=== PATIENT | male | born 1995 | race Caucasian/White ===

== ENCOUNTER 2023-10-31 07:10 | Day surgery (SDC) | payer OTHER ==
[~2023-10-31] VITALS: Ht 198.1 cm; Wt 76.5 kg
[~2023-10-31 07:10] MED LIST: BIKTARVY 50-201 EAC1 PO; DESCOVY 200-251 EACH PO; FAMO20 PO; IBUP400 PO; METPHE27ER PO; MIRT30 PO; OMEP20ER PO; PRESISTA PO; PREZCOBIX 8001 EAC1 PO; RALT400 PO; RITO100 PO; [UNRECOGNIZED DRUG - OTHER] PO
[2023-10-31 07:58] VITALS: BP 115/79
--- NOTE | 2023-10-31 08:02 | NUR ---
Ambulatory in Day Surgery. History, Chart, Medications and Allergies reviewed before start of procedure. Lungs clear T/O to Auscultation. Patient confirms NPO status and agrees with scheduled surgery. Pre-Op teaching done. Pt verbalizes understanding. Patient States Post-Procedure ride home has been arranged.
--- NOTE | 2023-10-31 09:50 | NUR ---
10/31/23 0950 Jessica Diaz History, Chart, Medications and Allergies reviewed before start of procedure.MONITOR INTACT WITH CONTINUOUS PULSE OXIMETRY, CONTINUOUS END TITAL CO2, AND INTERMITTENT BLOOD PRESSURE.3-LEAD EKG REVIEWED WITH PHYSICIAN PRIOR TO START OF PROCEDURE.O2 VIA N/C INTACT THROUGHOUT SEDATION/PROCEDURE.4% LIDO GIVEN BY DR. SWARTZ PRIOR TO PROCEDURE. Bite Block Placed. DR. SWARTZ PROVIDING ANESHTESIA.
[2023-10-31 10:12] VITALS: BP 116/76
--- NOTE | 2023-10-31 10:14 | NUR ---
REPORT RECEIVED FROM ALAINA DE LEON RN. VSS. PT STILL SLEEPY BUT REPONDS TO VERBAL STIMULATION AND CAN FOLLOW COMMANDS. PT MOM AT BEDSIDE.
[2023-10-31 10:17] VITALS: BP 114/79
--- NOTE | 2023-10-31 10:21 | NUR ---
PT MORE AWAKE, SITTING UP AND TOLERATING PO FLUIDS. VSS. PT DENIES PAIN, NAUSEA, OR OTHER DISCOMFORTS.
[2023-10-31 10:29] VITALS: BP 127/78
== END 2023-10-31 10:47 | disposition home or self-care (01) ==
LOC: ORSCMMR 07:10 → ORD 08:45 → ORSCMMR 08:45
PROVIDERS: Internal Medicine Gastroenterology
PROC: 0DB68ZX Excision of Stomach, Via Natural or Artificial Opening Endoscopic, Diagnostic (ICD-10-PCS; principal; 2023-10-31 08:45)
PROC: 0DB28ZX Excision of Middle Esophagus, Via Natural or Artificial Opening Endoscopic, Diagnostic (ICD-10-PCS; principal; 2023-10-31 08:45)
PROC: 0DB98ZX Excision of Duodenum, Via Natural or Artificial Opening Endoscopic, Diagnostic (ICD-10-PCS; principal; 2023-10-31 08:45)
DX: K21.9 Gastro-esophageal reflux disease without esophagitis (principal); R10.32 Left lower quadrant pain; K29.70 Gastritis, unspecified, without bleeding; I71.40 Abdominal aortic aneurysm, without rupture, unspecified; K44.9 Diaphragmatic hernia without obstruction or gangrene; B20 Human immunodeficiency virus [HIV] disease; F32.A Depression, unspecified; F41.9 Anxiety disorder, unspecified; Z79.899 Other long term (current) drug therapy
CPT/HCPCS: 88305; 88342; J2001; J2704; J7120

== ENCOUNTER 2023-12-27 18:44 | Emergency (ER) | payer OTHER ==
[~2023-12-27] VITALS: Ht 198.1 cm; Wt 73.0 kg
[2023-12-27 20:04] LABS: Source, Urine Clean Catch
[2023-12-27 20:10] LABS: Appearance, Urine Clear (Clear); Bilirubin, Urine Neg (Neg); Blood, Urine Neg (Neg); Glucose Qualitative, Urine Neg (Neg); Ketones, Urine 1+ (Neg); Leukocyte Esterase, Urine Neg (Neg); Nitrite, Urine Neg (Neg); Protein, Urine Neg (Neg); Urobilinogen, Urine NORM (Normal)
[2023-12-27 20:15] LABS: Color, Urine Pale Yellow (P-Yellow)
[2023-12-27 20:15] LABS: BASOPHILS ABSOLUTE AUTO 0.06 K/mm3 (0.00-0.23); BASOPHILS PERCENT AUTO 0 % (0-2); EOSINOPHILS ABSOLUTE AUTO 0.04 K/mm3 (0.00-0.68); EOSINOPHILS PERCENT AUTO 0 % (0-6); Hemoglobin 17.9 g/dL (13.5-17.5); IMMATURE GRAN ABSOLUTE AUTO 0.03 K/mm3 (0.00-0.10); IMMATURE GRAN PERCENT AUTO 0 % (0-1); LYMPHOCYTES ABSOLUTE AUTO 2.52 K/mm3 (0.84-5.20); LYMPHOCYTES PERCENT AUTO 18 % (21-46); MONOCYTES ABSOLUTE AUTO 0.74 K/mm3 (0.16-1.47); MONOCYTES PERCENT AUTO 5 % (4-13); Mean Corpuscular HGB 30.1 pg (26.0-34.0); Mean Corpuscular HGB Conc 34.4 g/dL (31.5-36.5); Mean Corpuscular Volume 87 fL (80-100); NEUTROPHILS PERCENT AUTO 76 % (41-73); Platelet Count 380 K/mm3 (150-400); RDW Coefficient Variation 12.5 % (11.7-14.2); RDW Standard Deviation 40.2 fL (35.1-46.3); Red Blood Cell Count 5.95 M/mm3 (4.30-5.90); White Blood Cell Count 14.29 K/mm3 (4.00-11.30)
[2023-12-27 20:44] LABS: Albumin, Blood 4.5 g/dL (3.4-5.0); Albumin/Globulin Ratio 1.1 (0.8-1.8); Bilirubin, Total 0.8 mg/dL (0.1-1.0); Bun/Creatinine Ratio 19.3 (12.0-20.0); Calcium, Blood 9.7 mg/dL (8.5-10.1); Creatinine, Blood 0.93 mg/dL (0.60-1.20); Potassium, Blood 3.7 mmol/L (3.5-5.5); Total Protein, Blood 8.5 g/dL (6.4-8.2)
[2023-12-27 23:08] VITALS: BP 126/82
[2023-12-27] MEDS ORDERED: RX Prepack 2 Tabs Ondansetron ODT 4MG UD ONE (23:15)
[2023-12-27] MEDS ORDERED: ONDA4 PO (23:17)
== END 2023-12-27 23:18 | disposition home or self-care (01) ==
LOC: ER 18:44
PROVIDERS: Student in an Organized Health Care Education/Training Program
DX: R10.30 Lower abdominal pain, unspecified (principal); Z79.899 Other long term (current) drug therapy; F17.200 Nicotine dependence, unspecified, uncomplicated
CPT/HCPCS: 74177; 80053; 81003; 83690; 85025; 99284-25; A9270; Q9967

== ENCOUNTER → 2024-05-01 | Outpatient (CLI) | payer OTHER ==
[~2024-05-01] MED LIST changes: +ONDA4 PO
== END ==
LOC: LAB 17:18 → LAB SHORT 17:18
DX: H92.02 Otalgia, left ear (principal)
CPT/HCPCS: 87070; 87077; 87186; 87205

== ENCOUNTER → 2024-11-12 | Outpatient (CLI) | payer OTHER | LOC: LAB SHORT 17:27 → LAB 17:27 | DX: R30.0 Dysuria (principal) | CPT/HCPCS: 87086 ==

== ENCOUNTER 2025-10-27 09:23 | Day surgery (SDC) | payer OTHER ==
[~2025-10-27] VITALS: Ht 198.1 cm; Wt 85.5 kg
[2025-10-27] MEDS ORDERED: METO50ER PO (10:13)
[2025-10-27] MEDS ORDERED: SERT25 PO (10:16)
[2025-10-27] MEDS ORDERED: Metoclopramide HCl 5MG / ML 2ML Vial ONE (10:42)
[2025-10-27] MEDS ORDERED: Ondansetron HCl 2 MG / ML 2ML Vial ONE (10:42)
[2025-10-27] MEDS ORDERED: Rocuronium Bromide 10 MG/ML 5ML Injection IV ONE ×3 (10:42→12:38)
--- NOTE | 2025-10-27 10:46 | NUR ---
10/27/25 1046 ISAURO PARR PT DENIES/QUESTIONS NEEDS AT THIS TIME. RAILS UP, BRAKES LOCKED, CALL LIGHT IN REACH.
[2025-10-27] MEDS ORDERED: Lidocaine 1%-Epineph 1:200000 30 ML SDV ONE (11:11)
[2025-10-27] MEDS ORDERED: Midazolam HCl 1MG / ML 2ML Vial ONE (11:32)
[2025-10-27] MEDS ORDERED: FentaNYL Citrate 50 MCG/ML 2 ML Injection ONE (11:45)
[2025-10-27] MEDS ORDERED: Triamcinolone Inj Susp 40 MG / ML 1ML Vial ONE (12:18)
[2025-10-27 13:41] VITALS: BP 128/66
--- NOTE | 2025-10-27 14:03 | NUR ---
10/27/25 Arslan EdwardsACIN APPLIED TO LEFT EAR INCISION. PT TOLERATED THIS WELL.
== END 2025-10-27 15:02 | disposition home or self-care (01) ==
LOC: ORSCSDS 09:23
PROVIDERS: Otolaryngology
PROC: 09U877Z Supplement Left Tympanic Membrane with Autologous Tissue Substitute, Via Natural or Artificial Opening (ICD-10-PCS; principal; 2025-10-27 11:15)
DX: H66.92 Otitis media, unspecified, left ear (principal); H72.92 Unspecified perforation of tympanic membrane, left ear; Q87.40 Marfan syndrome, unspecified; F84.0 Autistic disorder; F17.210 Nicotine dependence, cigarettes, uncomplicated; Z79.899 Other long term (current) drug therapy
CPT/HCPCS: A9270; J0166; J2250; J2405; J2704; J2765; J3010; J3301